=== PATIENT | male | born 1985 | race Caucasian/White ===

== ENCOUNTER 2018-02-19 21:43 | Emergency (ER) | payer BC ==
[~2018-02-19] VITALS: Ht 180.3 cm; Wt 68.6 kg
[~2018-02-19 21:43] MED LIST: FLEXERIL10 MG PO; MEDROL DOSEPAK4 MG PO; NAPROSYN500 MG PO; PEN-VEE K,VEET500 MG PO; PERCOCET 5/31 TABLET PO; TORADOL10 MG PO; ULTRAM50 MG PO
[2018-02-19] MEDS ORDERED: MOTRIN800 MG PO (22:14)
[2018-02-19] MEDS ORDERED: NORCO 7.5/321 TABLET PO (22:14)
[2018-02-19] MEDS ORDERED: VALIUM5 MG PO (22:14)
[2018-02-19 22:58] VITALS: BP 133/82
== END 2018-02-19 23:00 | disposition home or self-care (01) ==
LOC: EME 21:43
DX: G89.29 Other chronic pain (principal); M54.41 Lumbago with sciatica, right side; S46.911A Strain of unspecified muscle, fascia and tendon at shoulder and upper arm level, right arm, initial encounter; M54.12 Radiculopathy, cervical region; X58.XXXA Exposure to other specified factors, initial encounter; F17.200 Nicotine dependence, unspecified, uncomplicated
CPT/HCPCS: 99281; 99283; J3010